=== PATIENT | male | born 1945 | race Caucasian/White ===

== ENCOUNTER → 2017-05-31 | Outpatient (CLI) | payer MEDICARE, BC | LOC: CFH 15:33 | PROVIDERS: ATTEND Internal Medicine Cardiovascular Disease | DX: I07.1 Rheumatic tricuspid insufficiency (principal); I10 Essential (primary) hypertension; E78.5 Hyperlipidemia, unspecified; Z95.2 Presence of prosthetic heart valve; Z79.01 Long term (current) use of anticoagulants | CPT/HCPCS: 93306 ==

== ENCOUNTER → 2017-07-19 | Outpatient (CLI) | payer MEDICARE, BC | END | disposition home or self-care (01) | LOC: CFH 10:34 | PROVIDERS: ATTEND Registered Nurse | DX: E11.9 Type 2 diabetes mellitus without complications (principal); I10 Essential (primary) hypertension; E78.5 Hyperlipidemia, unspecified; H35.00 Unspecified background retinopathy; I48.91 Unspecified atrial fibrillation; R06.81 Apnea, not elsewhere classified; R53.83 Other fatigue; Z79.01 Long term (current) use of anticoagulants; Z95.2 Presence of prosthetic heart valve | CPT/HCPCS: 71046 ==

== ENCOUNTER 2018-10-28 01:04 | Emergency (ER) | payer MEDICARE, BC ==
[~2018-10-28] VITALS: Ht 177.8 cm; Wt 85.2 kg
[2018-10-28] MEDS ORDERED: PROPOFOL 10 MG/ML, 20ML ONE (01:49)
[2018-10-28] MEDS ORDERED: PROPOFOL 10 MG/ML, 20ML IVPush ONE (02:00)
--- NOTE | 2018-10-28 02:41 | NUR ---
PT'S HEART RHYTHM IS AFIB HR IS 100-120'S PT FEELS UNCOMFORTABLE DR LAI AT BED SIDE GIVEN POC PT WANTS CARDIOVERSION . GIVEN 100MCG PROPOFOL VIA IV BY ERP 200J OF SYNCH SHOCK PT'S HEART RHYTHM BECAME TO NSR PT TOLERATED WELL DURING THE PROCEDURE VSS STABLE PT WAS ABLE TO AWAKE RIGHT AWAY NSR WAS KEPT EKG WAS DONE CONFIRMED NSR AT THIS TIME VSS STABLE PT WAS ABLE TO DRINK WATER DENIED PAIN
--- NOTE | 2018-10-28 03:29 | NUR ---
FLAT RN: PT ON CELL PHONE IN ROOM CALLING A RIDE. NO ACUTE DISTRESS NOTED. VS STABLE. CALL LIGHT IN PLACE. WILL CONTINUE TO MONITOR WHILE PRIMARY RN IS ON BREAK.
[2018-10-28 04:49] VITALS: BP 142/74
--- NOTE | 2018-10-28 04:49 | NUR ---
GIVEN ALL DC INSTRUCTION PT'S RIDE IS HERE PT UP AMBULATED TO CHECK OUT
== END 2018-10-28 04:52 | disposition home or self-care (01) ==
LOC: ED 01:34
DX: I48.0 Paroxysmal atrial fibrillation (principal); R07.89 Other chest pain; I10 Essential (primary) hypertension; E11.9 Type 2 diabetes mellitus without complications
CPT/HCPCS: 92960; 93005; 99285; J2704

== ENCOUNTER 2018-12-18 09:22 | Inpatient (IN) | payer MEDICARE, BC ==
[~2018-12-18] VITALS: Ht 177.8 cm; Wt 92.0 kg
[2018-12-18 10:00] VITALS: BP 157/95
[2018-12-18 10:59] LABS: ANION GAP 7 mmol/L (5-15); CALCIUM 8.6 mg/dL (8.5-10.1); CHLORIDE 113 mmol/L (98-107); CHOLESTEROL, TOTAL 150 mg/dL (140-239); CREATININE 1.29 mg/dL (0.7-1.3); TRIGLYCERIDES 174 mg/dL (50-200); VLDL CHOLESTEROL 35 mg/dL (0-25)
[2018-12-18 11:03] LABS: CHOL/HDL RATIO 4.1; FREE T4 (FREE THYROXINE) 0.93 ng/dL (0.76-1.46); HDL CHOL % 25 % (26-37); HDL CHOLESTEROL (DIRECT) 37 mg/dL (40-60); LDL CHOLESTEROL,CALCULATED 78 mg/dL (54-169); LDL/HDL RATIO 2.1 (0.5-3.0); TROPONIN I < 0.015 ng/mL (0.000-0.045)
[2018-12-18 12:00] VITALS: BP 128/81
[2018-12-18] MEDS ORDERED: BISACODYL 5 MG EC TABLET PO PRN (12:00)
[2018-12-18] MEDS ORDERED: ACETAMINOPHEN 325 MG TABLET PO PRN (12:00)
[2018-12-18] MEDS ORDERED: BISACODYL 10 MG SUPP PR PRN (12:00)
[2018-12-18] MEDS ORDERED: ONDANSETRON 2MG/ML, 2ML IVPush PRN (12:00)
[2018-12-18 12:07] LABS: INTERNATIONAL NORMALIZED RATIO 1.8 (0.93-1.1); PROTHROMBIN TIME 18.5 Seconds (9.6-11.5)
[2018-12-18] MEDS ORDERED: AMIODARONE 200 MG TABLET PO ONE (12:30)
[2018-12-18] MEDS ORDERED: METF500T17 PO (12:57)
[2018-12-18] MEDS ORDERED: BIMA2.5D EACHEYE (13:02)
[2018-12-18] MEDS ORDERED: FENO54TA17 PO (13:02)
[2018-12-18] MEDS ORDERED: WARF7.5T PO (13:02)
[2018-12-18] MEDS ORDERED: ASPI-496 PO (13:02)
[2018-12-18] MEDS ORDERED: AMLO5TAB10 PO (13:02)
[2018-12-18] MEDS ORDERED: CARV25TA PO (13:02)
[2018-12-18] MEDS ORDERED: LOSA100T14 PO (13:02)
[2018-12-18 16:09] LABS: TROPONIN I < 0.015 ng/mL (0.000-0.045)
[2018-12-18] MEDS: metFORMIN 500 MG TABLET PO SCH (16:35)
[2018-12-18] MEDS: AMIODARONE 200 MG TABLET PO SCH ×2 (16:35→21:36)
[2018-12-18] MEDS ORDERED: WARFARIN 7.5 MG TABLET PO-COUM ONE (18:00)
[2018-12-18 19:19] VITALS: BP 139/86
[2018-12-18] MEDS: SODIUM CHLORIDE FLUSH 10ML SYR IVF SCH (21:34)
[2018-12-18] MEDS: CARVEDILOL 25 MG TABLET PO SCH (21:35)
[2018-12-18] MEDS: ATORVASTATIN 80 MG TABLET PO SCH (21:36)
[2018-12-18] MEDS: ZOLPIDEM 5MG TABLET PO PRN (21:36)
[2018-12-18 22:11] LABS: TROPONIN I < 0.015 ng/mL (0.000-0.045)
[2018-12-19 02:08] VITALS: BP 124/72
[2018-12-19] MEDS: CARVEDILOL 25 MG TABLET PO SCH ×2 (05:33→21:39)
[2018-12-19 05:40] LABS: INTERNATIONAL NORMALIZED RATIO 2.08 (0.93-1.1); PROTHROMBIN TIME 21.2 Seconds (9.6-11.5)
[2018-12-19 07:21] VITALS: BP 136/90
[2018-12-19] MEDS: metFORMIN 500 MG TABLET PO SCH ×2 (09:16→17:07)
[2018-12-19] MEDS: AMLODIPINE 5 MG TABLET PO SCH (09:17)
[2018-12-19] MEDS: AMIODARONE 200 MG TABLET PO SCH ×3 (09:17→21:38)
[2018-12-19] MEDS: FENOFIBRATE 54 MG TABLET PO SCH (09:17)
[2018-12-19] MEDS: LOSARTAN 50MG TABLET PO SCH (09:17)
[2018-12-19] MEDS: SODIUM CHLORIDE FLUSH 10ML SYR IVF SCH ×2 (09:18→21:38)
[2018-12-19 15:49] VITALS: BP 130/85
[2018-12-19] MEDS ORDERED: WARFARIN 7.5 MG TABLET PO-COUM ONE (18:00)
[2018-12-19 19:14] VITALS: BP 154/89
[2018-12-19] MEDS: ATORVASTATIN 80 MG TABLET PO SCH (21:38)
[2018-12-19] MEDS: ZOLPIDEM 5MG TABLET PO PRN (21:39)
[2018-12-20 03:32] VITALS: BP 124/87
[2018-12-20 05:18] LABS: INTERNATIONAL NORMALIZED RATIO 2.76 (0.93-1.1); PROTHROMBIN TIME 27.9 Seconds (9.6-11.5)
[2018-12-20] MEDS: CARVEDILOL 25 MG TABLET PO SCH (06:06)
[2018-12-20 06:45] VITALS: BP 122/87
[2018-12-20] MEDS ORDERED: PROPOFOL 10 MG/ML, 20ML ONE (08:25)
[2018-12-20] MEDS: SODIUM CHLORIDE FLUSH 10ML SYR IVF SCH (09:00)
[2018-12-20] MEDS: metFORMIN 500 MG TABLET PO SCH (09:35)
[2018-12-20] MEDS: AMIODARONE 200 MG TABLET PO SCH (09:35)
[2018-12-20] MEDS: AMLODIPINE 5 MG TABLET PO SCH (09:35)
[2018-12-20] MEDS: LOSARTAN 50MG TABLET PO SCH (09:35)
[2018-12-20] MEDS: FENOFIBRATE 54 MG TABLET PO SCH (09:36)
[2018-12-20] MEDS ORDERED: AMIO200T42 PO (10:26)
[2018-12-20] MEDS ORDERED: WARFARIN 5 MG TABLET PO-COUM SCH (18:00)
== END 2018-12-20 12:10 | disposition home or self-care (01) | DRG 309 ==
LOC: 5SO 09:22 → DCLOUNGE 12-20 12:00
PROVIDERS: ADMIT Internal Medicine Cardiovascular Disease; ATTEND Internal Medicine Cardiovascular Disease
PROC: 5A09357 Assistance with Respiratory Ventilation, Less than 24 Consecutive Hours, Continuous Positive Airway Pressure (ICD-10-PCS; 2018-12-19)
PROC: 5A09357 Assistance with Respiratory Ventilation, Less than 24 Consecutive Hours, Continuous Positive Airway Pressure (ICD-10-PCS; 2018-12-20)
PROC: 5A2204Z Restoration of Cardiac Rhythm, Single (ICD-10-PCS; principal; 2018-12-20 09:00)
DX: I48.0 Paroxysmal atrial fibrillation (principal); D68.69 Other thrombophilia; E11.9 Type 2 diabetes mellitus without complications; E78.5 Hyperlipidemia, unspecified; I10 Essential (primary) hypertension; Z79.84 Long term (current) use of oral hypoglycemic drugs; Z87.891 Personal history of nicotine dependence; Z95.2 Presence of prosthetic heart valve; Z79.899 Other long term (current) drug therapy; Z79.01 Long term (current) use of anticoagulants
CPT/HCPCS: 36415; 71046; 80048; 80061; 84439; 84443; 84484; 85014; 85018; 85610; 92960; 93005; G0378; J2704

== ENCOUNTER 2019-01-30 09:54 | Day surgery (SDC) | payer MEDICARE, BC ==
[~2019-01-30] VITALS: Ht 177.8 cm; Wt 109.0 kg
[2019-01-30 10:42] VITALS: BP 158/104
== END 2019-01-30 14:36 | disposition home or self-care (01) ==
LOC: CACL 09:54
PROVIDERS: ATTEND Internal Medicine Cardiovascular Disease
DX: I48.91 Unspecified atrial fibrillation (principal); Z79.82 Long term (current) use of aspirin
CPT/HCPCS: 36415; 80048; 85610; 92960; J2704

== ENCOUNTER → 2019-06-25 | Outpatient (CLI) | payer MEDICARE, BC ==
[~2019-06-25] MED LIST: AMIO200T42 PO; AMLO5TAB10 PO; ASPI-496 PO; ATOR-2 PO; BIMA2.5D EACHEYE; CARV25TA PO; CARV25TA12 PO; FENO54TA17 PO; LOSA100T14 PO; METF500T17 PO; WARF7.5T PO
== END | disposition home or self-care (01) ==
LOC: CFH 11:04
PROVIDERS: ATTEND Internal Medicine Cardiovascular Disease
DX: I48.91 Unspecified atrial fibrillation (principal); Z95.2 Presence of prosthetic heart valve
CPT/HCPCS: 71046

== ENCOUNTER → 2020-10-12 | Outpatient (CLI) | payer MEDICARE, BC ==
[~2020-10-12] MED LIST changes: +AMLO-210 PO; -AMLO5TAB10 PO
== END | disposition home or self-care (01) ==
LOC: CFH 10:44
PROVIDERS: ATTEND Internal Medicine Cardiovascular Disease
DX: J98.4 Other disorders of lung (principal); I10 Essential (primary) hypertension; E78.5 Hyperlipidemia, unspecified; G47.33 Obstructive sleep apnea (adult) (pediatric); I48.91 Unspecified atrial fibrillation; Z79.01 Long term (current) use of anticoagulants
CPT/HCPCS: 71046

== ENCOUNTER → 2020-10-12 | Outpatient (CLI) | payer MEDICARE, BC | END | disposition home or self-care (01) | LOC: CVU 13:41 | PROVIDERS: ATTEND Internal Medicine Cardiovascular Disease | DX: I35.8 Other nonrheumatic aortic valve disorders (principal); E78.5 Hyperlipidemia, unspecified; E11.9 Type 2 diabetes mellitus without complications; I11.9 Hypertensive heart disease without heart failure; Z95.2 Presence of prosthetic heart valve; Z79.01 Long term (current) use of anticoagulants | CPT/HCPCS: 93306 ==

== ENCOUNTER → 2021-03-25 | Outpatient (CLI) | payer MEDICARE, BC | END | disposition home or self-care (01) | LOC: LAB 09:20 | PROVIDERS: ATTEND Family Medicine | DX: E11.21 Type 2 diabetes mellitus with diabetic nephropathy (principal); I48.20 Chronic atrial fibrillation, unspecified; E03.9 Hypothyroidism, unspecified ==